=== PATIENT | male | born 1980 | race Caucasian/White ===

== ENCOUNTER 2017-12-30 16:35 | Emergency (ER) | payer OTHER ==
[2017-12-30 16:38] VITALS: BP 129/81
[2017-12-30 17:13] LABS: ABSOLUTE BASOPHIL COUNT 0 /CUMM (0.0-0.2); ABSOLUTE EOSINOPHIL COUNT 0.1 /CUMM (0.0-0.7); ABSOLUTE GRANULOCYTE CT 2.5 /CUMM (1.4-6.5); ABSOLUTE LYMPH COUNT 1.4 /CUMM (1.2-3.4); ABSOLUTE MONOCYTE COUNT 0.8 /CUMM (0.10-0.60); BASOPHIL % 0.4 % (0.0-2.0); GRANULOCYTE % 52.1 % (42.2-75.2); HEMATOCRIT 40.3 % (42-52); MEAN CORPUSCULAR HGB 29.3 PG (27.0-31.0); MEAN CORPUSCULAR VOLUME 86.1 FL (80.0-94.0); MEAN PLATELET VOLUME 8.1 FL (7.4-10.4); PLATELET COUNT 267 /CUMM (130-400); RED BLOOD CELL CT 4.68 /CUMM (4.70-6.10); WHITE BLOOD CELL COUNT 4.8 /CUMM (4.8-10.8)
--- NOTE | 2017-12-30 17:58 | ED GENERAL ADULT ---
History of Present Illness General Chief Complaint: Lower Extremity Injury Stated Complaint: PT RT LEG IS SWOLLING Source: patient Exam Limitations: no limitations Vital Signs & Intake/Output Vital Signs & Intake/Output Vital Signs Date Time Temp Pulse Resp B/P B/P Pulse O2 O2 Flow FiO2 Mean Ox Delivery Rate 12/30 1638 98.2 56 18 129/81 98 Room Air Allergies Coded Allergies: No Known Allergies (12/30/17) Triage Note: 37M TO ED FROM WALK IN FOR RIGHT CALF SWELLING SINCE YESTERDAY, DENIES RECENT STRENUOUS ACTIVITY, PAIN, COUGH OR RECENT TRAVEL. NO REDNESS. +TINGLING. Triage Nurses Notes Reviewed? yes Onset: Gradual Duration: day(s): Timing: constant HPI: 37-year-old male with no known past medical history presenting with right leg pain and swelling since yesterday. Patient reports an injury to his posterior knee several weeks ago that has since healed, but has now subsequently developed pain and swelling to the calf. Is unsure if the 2 are related. Denies any direct injury to the calf, and has had no recent strenuous activity. Patient was evaluated at an urgent care earlier today and sent into the emergency department for evaluation. Patient denies personal/family history of blood clots, recent surgery/travel, hormone use, cough, hemoptysis, chest pain, shortness of breath. Past History Travel History Traveled to [place] past 21 day No Medical History Any Pertinent Medical History? none Tetanus Vaccine: Surgical History Surgical History: non-contributory Psychosocial History What is your primary language Italian Tobacco Use: Never used Family History Hx Contributory? No Review of Systems Review of Systems Constitutional: Reports: no symptoms. EENTM: Reports: no symptoms. Respiratory: Reports: no symptoms. Cardiovascular: Reports: no symptoms. GI: Reports: no symptoms. Genitourinary: Reports: no symptoms. Musculoskeletal: Reports: see HPI. Skin: Reports: no symptoms. Neurological/Psychological: Reports: no symptoms. Hematologic/Endocrine: Reports: no symptoms. Immunologic/Allergic: Reports: no symptoms. All Other Systems: Reviewed and Negative Physical Exam Physical Exam General Appearance: well developed/nourished, no apparent distress, alert, awake , comfortable Head: atraumatic, normal appearance Eyes: Bilateral: normal appearance. Neck: normal inspection Respiratory: normal breath sounds, lungs clear Cardiovascular: regular rate/rhythm Gastrointestinal: soft, non-tender Back: normal inspection Extremities: on exam of the right lower extremity there is 1+ edema with TTP of the calf muscle, no erythema or increased warmth, sensation intact, motor strength 5/5, DP and PT pulses 2+, able to bear weight and ambulate. There is mild TTP over the posterior knee, unrestricted ROM with knee flexion and extension. Neurologic/Psych: awake, alert, oriented x 3, normal gait, normal mood/affect Skin: intact, normal color, warm/dry Core Measures ACS in differential dx? No CVA/TIA Diagnosis: No Sepsis Present: No Sepsis Focused Exam Completed? No Progress Differential Diagnoses I considered the following diagnoses in my evaluation of the patient: [Ligament injury versus musculoskeletal strain versus dehydration versus rhabdomyolysis versus DVT, will concern for arterial thrombus] Plan of Care: Orders Procedure Date/time Status HEPATIC FUNCTION PANEL 12/30 1645 Complete CREATINE PHOSPHOKINASE 12/30 1645 Complete CBC WITHOUT DIFFERENTIAL 12/30 1645 Complete B-TYPE NATRIURETIC PEP (BNP) 12/30 1645 Complete BASIC METABOLIC PANEL 12/30 1645 Complete Current Medications Sig/Escobar Start time Last Medication Dose Stop Time Status Admin Enoxaparin Sodium 80 MG ONCE ONE 12/30 1815 UNVr (Lovenox) 12/30 1816 Enoxaparin Sodium 76 MG ONCE ONE 12/30 1800 CANr (Lovenox) 12/30 1801 Laboratory Tests 12/30/17 1700: Anion Gap 12, Estimated GFR > 60, BUN/Creatinine Ratio 20.0, Glucose 111 H, Calcium 9.8, Total Bilirubin 0.4, Direct Bilirubin 0.2, AST 32, ALT 41, Alkaline Phosphatase 56, Creatine Kinase 191 H, Dyu-W-Mhidefsrkfg Pept 34.8, Total Protein 7.9, Albumin 4.8, CBC w Diff NO MAN DIFF REQ, RBC 4.68 L, MCV 86.1, MCH 29.3, MCHC 34.0, RDW 13.0, MPV 8.1, Gran % 52.1, Lymphocytes % 28.7, Monocytes % 15.8 H, Eosinophils % 3.0, Basophils % 0.4, Absolute Granulocytes 2.5, Absolute Lymphocytes 1.4, Absolute Monocytes 0.8 H, Absolute Eosinophils 0.1, Absolute Basophils 0 Labs were unremarkable with the exception of a mild elevation in the creatinine kinase to 190. Patient instructed to maintain adequate fluid intake at home. Was given an outpatient slip for ultrasound tomorrow, as ultrasound is already gone for the day. I have expressed to the patient and his that my concern for DVT is low at this time given the patient's exam and lack of risk factors. However the patient and his expressed persistent concern for DVT and are requesting prophylactic coverage with Lovenox injections. Patient given a Lovenox injection 80 mg and instructed to follow-up for his ultrasound tomorrow. Counseled on supportive care and strict return precautions Initial ED EKG: none Departure Departure Disposition: HOME OR SELF CARE Condition: Stable Clinical Impression Primary Impression: Right leg swelling Referrals: Carina FLORES,Chivo Reddy (PCP/Family) Additional Instructions: Follow-up tomorrow morning for your outpatient ultrasound. You will receive a phone call if the findings of this ultrasound are positive for a DVT. Return to the emergency department sooner for any new or worsening symptoms. Otherwise follow-up with your primary care provider for reevaluation. Departure Forms: Customer Survey General Discharge Information Critical Care Note Critical Care Note Critical Care Time: non-applicable
== END 2017-12-30 18:08 ==
LOC: ERH 16:35
PROVIDERS: Physician Assistant
DX: M79.89 Other specified soft tissue disorders (principal)
CPT/HCPCS: 96372; J1650

== ENCOUNTER 2017-12-31 10:06 | Emergency (ER) | payer OTHER ==
[2017-12-31 10:11] VITALS: BP 142/90
--- NOTE | 2017-12-31 11:56 | ULTRASOUND REPORT ---
EXAMINATION: RIGHT LOWER EXTREMITY VENOUS DOPPLER ULTRASOUND CLINICAL INFORMATION: Right calf swelling. Evaluate for DVT. COMPARISON: None. TECHNIQUE: Doppler spectral analysis and color flow Doppler imaging was performed of the right lower extremity. Compression and augmentation maneuvers were performed. FINDINGS: The right common femoral vein, greater saphenous vein takeoff, femoral vein, and popliteal vein are normally compressible with normal augmentation responses and phasic changes seen with Doppler imaging. The midcalf peroneal and posterior tibial veins are patent as well. No popliteal cyst is seen. IMPRESSION: No evidence of deep venous thrombosis in the right lower extremity.
--- NOTE | 2017-12-31 12:04 | ED GENERAL ADULT ---
History of Present Illness General Chief Complaint: Lower Extremity Problems Stated Complaint: SENT BY ANUP BENDER FOR US OF RT LEG Source: patient Exam Limitations: no limitations Vital Signs & Intake/Output Vital Signs & Intake/Output Vital Signs Date Time Temp Pulse Resp B/P B/P Pulse O2 O2 Flow FiO2 Mean Ox Delivery Rate 12/31 1011 97.0 62 16 142/90 97 Room Air Allergies Coded Allergies: No Known Allergies (12/30/17) Triage Note: PT TO ED FOR ULTRASOUND OF RIGHT LEG. PT ORIGINALLY TO ED AND PRESENTED AN OUTPATIENT ORDER FORM TO RECEIVE AN ULTRASOUND. STATES THAT HE WAS SEEN AT A WALK-IN YESTERDAY, AND TOLD TO COME TO THE ED FOR A STAT ULTRASOUND. PT WAS TOLD BY REGISTRATION THAT HE NEEDS TO CALL [facility] SCHEDULING TO SCHEDULE THE TESTING, AND ULTRASOUND CONFIRMED. PT ANGRY AND DEMANDING TO SPEAK WITH ANUP BENDER SHE TOLD HIM TO COME BACK TO THE ED TODAY FOR THE TEST. PT INFROMED THAT HE CAN SIGN IN AN EMERGENCY ROOM PATIENT AND RECEIVE THE TEST THAT WAY. PT STATES THAT HE WILL REFUSE TO PAY THE CO-PAY. DEMANDING TO SPEAK WITH BUSINESS DEVELOPMENT ANALYST. BAKERY CLERK LESLIE OVER IN WAITING ROOM SPEAKING WITH PATIENT WELL. PROVIDED WITH DR ATKINS AND PATIENT SAFETY PHONE NUMBERS. PT AGREEABLE TO SIGN INTO THE ER A PATIENT. WHILE IN TRIAGE, THIS RN ATTEMPTING TO ASK QUESTIONS WITH PATIENT, AND HE STATES "THESE ARE ALL THE SAME QUESTIONS FROM YESTERDAY, I ALREADY GAVE MY ANSWERS." INFORMED PT THAT I WAS NOT PART OF HIS CARE YESTERDAY, AND THAT WE NEED TO RE-ASSESS HIM SINCE IT IS A NEW VISIT. PT DISPLEASED AND QUICK TO LEAVE TRIAGE AFTER VITALS ASSESSED. Triage Nurses Notes Reviewed? yes Onset: Abrupt Duration: week(s): (1), better, continues in ED Timing: single episode today Injury Environment: home Severity: mild, moderate Severity Numbers: 5 No Modifying Factors: none Modifying Factors: Worsens With: movement, other (palpation). HPI: 37-year-old male with no past medical history presents for reevaluation of right lower leg swelling. Patient was seen here yesterday and instructed to return today for an ultrasound to rule out DVT. Patient reports the swelling has improved. There is no redness. The swelling and pain is located mostly in the right popliteal and right calf area. The pain is worse with movement weightbearing or touching the area. He is able to walk steady gait. No numbness or tingling no history of DVT recent surgery recent trauma. Past History Travel History Traveled to [place] past 21 day No Medical History Any Pertinent Medical History? see below for history Tetanus Vaccine: Surgical History Surgical History: non-contributory Psychosocial History What is your primary language Estonian Tobacco Use: Never used Family History Hx Contributory? No Review of Systems Review of Systems Constitutional: Reports: no symptoms. EENTM: Reports: no symptoms. Respiratory: Reports: no symptoms. Cardiovascular: Reports: no symptoms. GI: Reports: no symptoms. Genitourinary: Reports: no symptoms. Musculoskeletal: Reports: see HPI, joint pain, muscle pain, muscle stiffness. Skin: Reports: no symptoms. Neurological/Psychological: Reports: no symptoms. Hematologic/Endocrine: Reports: no symptoms. Immunologic/Allergic: Reports: no symptoms. All Other Systems: Reviewed and Negative Physical Exam Physical Exam General Appearance: well developed/nourished, no apparent distress, alert, awake Head: atraumatic, normal appearance Eyes: Bilateral: normal appearance, EOMI. Ears, Nose, Throat: hearing grossly normal Neck: normal inspection, supple, full range of motion Respiratory: no respiratory distress Peripheral Pulses: 2+ tibialis posterior (R), 2+ tibialis posterior (L), 2+ dorsalis pedis (R), 2+ dorsalis pedis (L) Back: normal inspection, normal range of motion, no vertebral tenderness Extremities: normal inspection, normal range of motion, no edema, no observable swelling is noted to the right lower extremity. There is mild tenderness in the popliteal fossa and right calf. No redness. Neurovascular supply is intact for range of motion intact patient is able to walk and bear weight Neurologic/Psych: no motor/sensory deficits, awake, alert, oriented x 3, normal gait Reflexes: 2+: knee (R), knee (L). Skin: intact, normal color, warm/dry Core Measures ACS in differential dx? No CVA/TIA Diagnosis: No Sepsis Present: No Sepsis Focused Exam Completed? No Progress Differential Diagnoses I considered the following diagnoses in my evaluation of the patient: [Muscle injury, ligamentous injury, DVT, peripheral vascular disease, rhabdo] Plan of Care: Patient is here for an ultrasound of his right lower extremity he was seen yesterday and instructed to return today for the ultrasound. The swelling has improved since yesterday. Ultrasound was obtained here and is negative. Neurovascular supply is intact. Advised rest ice elevation compression. Tylenol or ibuprofen for pain. Follow-up with the primary care doctor. Discussed return precautions patient agrees the plan Diagnostic Imaging: Viewed by Me: Ultrasound. Discussed w/RAD: Ultrasound. Radiology Impression: PATIENT: COLLIN HERNANDEZ PRESENT AGE: 37 PATIENT ACCOUNT NO: [id number] : 80 LOCATION: [facility] ORDERING PHYSICIAN: Del Munoz MD SERVICE DATE: 12/31/17 EXAM TYPE: US - US -UNILATERAL VENOUS DOPPLER EXAMINATION: RIGHT LOWER EXTREMITY VENOUS DOPPLER ULTRASOUND CLINICAL INFORMATION: Right calf swelling. Evaluate for DVT. COMPARISON: None. TECHNIQUE: Doppler spectral analysis and color flow Doppler imaging was performed of the right lower extremity. Compression and augmentation maneuvers were performed. FINDINGS: The right common femoral vein, greater saphenous vein takeoff, femoral vein, and popliteal vein are normally compressible with normal augmentation responses and phasic changes seen with Doppler imaging. The midcalf peroneal and posterior tibial veins are patent as well. No popliteal cyst is seen. IMPRESSION: No evidence of deep venous thrombosis in the right lower extremity. DICTATED BY: Michael FLORES,Natalia Martinez DATE/ TIME DICTATED:12/31/171150 ALLIGATOR TRAPPER:NAEEM DATE/TIME TRANSCRIBED: 12/31/171150 CONFIDENTIAL, DO NOT COPY WITHOUT APPROPRIATE AUTHORIZATION. < Electronically signed in Other Vendor System> Initial ED EKG: none Departure Departure Disposition: HOME OR SELF CARE Condition: Stable Clinical Impression Primary Impression: Pain in right lower leg Referrals: Carina FLORES,Chivo Reddy (PCP/Family) Additional Instructions: Rest, avoid excessive weightbearing and walking. Apply ice 15-20 minutes every few hours keep her leg elevated. Wear a knee brace or Daniel wrap. Tylenol ibuprofen for pain. Follow-up with your doctor as scheduled. Monitor symptoms return with worsening swelling worsening pain redness or any other concerns. Departure Forms: Customer Survey General Discharge Information Critical Care Note Critical Care Note Critical Care Time: non-applicable
== END 2017-12-31 12:22 ==
LOC: ERH 10:06
DX: M79.661 Pain in right lower leg (principal)